=== PATIENT | female | born 2000 | race African-American/Black ===

== ENCOUNTER 2018-03-02 02:54 | Outpatient (CLI) | payer OTHER ==
[2018-03-03] MEDS ORDERED: FOLIC ACID PO (21:08)
== END 2018-03-02 08:55 | disposition home or self-care (01) ==
LOC: OBS/DEL 02:54
DX: O24.410 Gestational diabetes mellitus in pregnancy, diet controlled (principal); Z34.83 Encounter for supervision of other normal pregnancy, third trimester

== ENCOUNTER 2018-03-03 20:46 | Inpatient (IN) | payer OTHER ==
[~2018-03-03] VITALS: Ht 162.6 cm; Wt 72.1 kg
[2018-03-03] MEDS ORDERED: FOLIC ACID PO (21:08)
== END 2018-03-06 12:35 | disposition home or self-care (01) | DRG 807 ==
LOC: LDR 20:46 → OB/GYN 03-04 12:47
PROVIDERS: ADMIT Specialist
PROC: 3E0P7VZ Introduction of Hormone into Female Reproductive, Via Natural or Artificial Opening (ICD-10-PCS; 2018-03-03)
PROC: 3E033VJ Introduction of Other Hormone into Peripheral Vein, Percutaneous Approach (ICD-10-PCS; 2018-03-03)
PROC: 4A1HXCZ Monitoring of Products of Conception, Cardiac Rate, External Approach (ICD-10-PCS; 2018-03-03)
PROC: 10E0XZZ Delivery of Products of Conception, External Approach (ICD-10-PCS; principal; 2018-03-04)
PROC: 0UQGXZZ Repair Vagina, External Approach (ICD-10-PCS; 2018-03-04)
DX: O71.4 Obstetric high vaginal laceration alone (principal); Z37.0 Single live birth; Z3A.39 39 weeks gestation of pregnancy